=== PATIENT | male | born 1950 | race Caucasian/White ===

== ENCOUNTER 2017-06-10 06:44 | Day surgery (SDC) | payer MEDICARE, BC ==
[~2017-06-10 06:44] MED LIST: Dextrose 5%-0.45% NaCl 1,000 ML IV SCH; Midazolam 1 MG/ML 2 ML SDV ONE; Sodium Chloride 0.9% 10 ML Syringe FLUSH PRN; fentaNYL 100 MCG/2 ML SDV ONE
[2017-06-10] MEDS ORDERED: fentaNYL 100 MCG/2 ML SDV IV ONE ×3 (06:45→08:16)
[2017-06-10] MEDS ORDERED: Midazolam 1 MG/ML 2 ML SDV IV ONE ×7 (06:45→08:23)
--- NOTE | 2017-06-10 10:45 | OR ---
DATE: 06/10/2017 PROCEDURE: Total colonoscopy. INSTRUMENT USED: CF-H180 AL Olympus video colonoscope. PREMEDICATIONS: Fentanyl 100 mcg intravenous, Versed 4 mg intravenous. Nasal O2 cannula. The procedure was done under pulse oximetry, BP recording, and cardiac surgeon. INDICATION: The patient with rectal bleeding. Colonoscopic examination is done for detection of any polypoid lesions and removal, endoscopic hemostasis therapy if needed. DESCRIPTION OF PROCEDURE: Initial rectal exam was unremarkable. Rigid anoscopy showed small internal hemorrhoids without bleeding from them. The colonoscope was passed with ease. Scattered diverticula were noted in the distal colon along with deformity. The scope was passed with ease up to the ileocecal area. Photographs were taken of the normal-appearing cecum identified by appendiceal orifice and double-bulged ileocecal folds. No bleeding was noted from any of the visualized areas at the commencement of the examination. No stricture. No vascular ectasia. No large isolated ulcerations seen. No evidence of diffuse inflammatory bowel disease in the form of friability, contact bleeding, or ulcerations. No polyp or tumor mass identified. Probing the proximal sides of folds and flexures, using adequate distention and clearing of the stool material, withdrawal of the scope was made. Cecum to rectum time over 6 minutes. No bleeding was noted from any of the visualized areas at the completion of the examination. IMPRESSION: 1. Internal hemorrhoids. 2. Diverticulosis. The patient tolerated the procedure well. [facility] /[id number]
[2017-06-10 13:46] VITALS: BP 126/72
== END 2017-06-10 10:36 | disposition home or self-care (01) ==
LOC: DL.ENDO 06:44
PROVIDERS: ATTEND Internal Medicine Gastroenterology
DX: K57.30 Diverticulosis of large intestine without perforation or abscess without bleeding (principal); K64.8 Other hemorrhoids; F32.9 Major depressive disorder, single episode, unspecified; E78.5 Hyperlipidemia, unspecified; Z90.49 Acquired absence of other specified parts of digestive tract; Z87.891 Personal history of nicotine dependence
CPT/HCPCS: 45378; J2250; J3010; J7042

== ENCOUNTER 2018-09-02 16:52 | Emergency (ER) | payer MEDICARE, BC ==
[2018-09-02 17:05] VITALS: BP 165/91
--- NOTE | 2018-09-02 17:10 | EDM.PDOC ---
ED HPI GENERAL MEDICAL PROBLEM - General Chief Complaint: Neuro Symptoms/Deficits Stated Complaint: DIZZY, SWEATS Time Seen by Provider: 09/02/18 17:10 Source of Information: Reports: Patient, Family (), Old Records, RN, RN Notes Reviewed History Limitations: Reports: No Limitations - History of Present Illness INITIAL COMMENTS - FREE TEXT/NARRATIVE: Pt presents to ER from home by POV with c/o recurring episodes of near syncope that began four days ago (on 08/30/18). Pt describes lightheadedness and comes close to "passing out". The episodes are associated with diaphoresis and nausea. He vomited a small amount, but only one time. Since the onset the episodes have been increasing in frequency and intensity. He denies "room spin dizziness", headache, visual changes, difficulty swallowing, slurred speech, speech difficulties, motor weakness, or unilateral motor or sensory deficits, chest pain, palpitations, or shortness of breath. Onset: Sudden Duration: Getting Worse, Recurring Location: Reports: Generalized Quality: Reports: Other (Denies pain) Severity: Severe Improves with: Reports: None Worsens with: Reports: None Associated Symptoms: Reports: No Other Symptoms - Related Data Allergies Allergy/AdvReac Type Severity Reaction Status Date / Time No Known Allergies Allergy Verified 06/10/17 07:02 Home Meds: Home Meds Sertraline [Zoloft] 25 mg PO DAILY 03/30/16 [History] Zolpidem [Ambien] 5 mg PO BEDTIME PRN 03/30/16 [History] atorvaSTATin [Lipitor] 10 mg PO BEDTIME 03/30/16 [History] Calcium Carbonate/Vitamin D3 [Calcium 500 + Vit D 400] 1 tab PO ASDIRECTED 05/27 [History] Fluticasone Propionate [Flonase Allergy Relief] 1 squirt NASBOTH ASDIRECTED 09/08 [History] L.acidoph,Paracasei, B.lactis [Probiotic] 1 cap PO ASDIRECTED 05/27/17 [History] Ubidecarenone [Coenzyme Q10] 1 tab PO DAILY 05/27/17 [History] Aspirin [Halfprin] 1 tab PO DAILY 06/09/17 [History] Past Medical History HEENT History: Reports: Cataract Cardiovascular History: Reports: High Cholesterol Respiratory History: Reports: Bronchitis, Recurrent Gastrointestinal History: Reports: Diverticulosis, Other (See Below) Other Gastrointestinal History: HX OF ANAL FISSURE & FISTULA Genitourinary History: Reports: Prostate Disorder Musculoskeletal History: Reports: Arthritis Neurological History: Reports: None Psychiatric History: Reports: Depression, Other (See Below) Other Psychiatric History: S/P TOBACCO HABITUATION Endocrine/Metabolic History: Reports: None Hematologic History: Reports: None Immunologic History: Reports: None Oncologic (Cancer) History: Reports: None Dermatologic History: Reports: None - Infectious Disease History Infectious Disease History: Reports: Chicken Pox, Measles, Mumps - Past Surgical History HEENT Surgical History: Reports: None Cardiovascular Surgical History: Reports: None GI Surgical History: Reports: Cholecystectomy, Colonoscopy, EGD Male Surgical History: Reports: None Social & Family History - Family History Family Medical History: Noncontributory - Tobacco Use Smoking Status *Q: Never Smoker - Caffeine Use Caffeine Use: Reports: Coffee, Soda Caffeine Use Comment: 8oz coffee. 1 pop - Living Situation & Occupation Living situation: Reports: with Spouse ED ROS GENERAL - Review of Systems Review Of Systems: ROS reveals no pertinent complaints other than HPI. ED EXAM, NEURO - Physical Exam Exam: See Below Exam Limited By: No Limitations General Appearance: Alert, WD/WN, No Apparent Distress, Anxious Eye Exam: Bilateral Eye: EOMI, Nystagmus, PERRL Ears: Normal External Exam, Hearing Grossly Normal Nose: Normal Inspection, Normal Mucosa, No Blood Throat/Mouth: Normal Inspection, Normal Lips, Normal Teeth, Normal Gums, Normal Oropharynx, Normal Voice, No Airway Compromise Head Exam: Atraumatic, Normocephalic Neck: Normal Inspection, Supple, Non-Tender, Full Range of Motion. No: Carotid Bruit Respiratory/Chest: No Respiratory Distress, Lungs Clear, Normal Breath Sounds, No Accessory Muscle Use, Chest Non-Tender Cardiovascular: Normal Peripheral Pulses, Regular Rate, Rhythm, No Edema, No Gallop, No JVD, No Murmur, No Rub GI/Abdominal: Normal Bowel Sounds, Soft, Non-Tender, No Distention Neurological: Alert, Normal Mood/Affect, Normal Dorsiflexion, CN II-XII Intact, Normal Plantar Flexion, No Motor/Sensory Deficits, Oriented x 3, Other (NIH score: 0 per RN) Back Exam: Normal Inspection Extremities: Normal Inspection, Normal Range of Motion, Non-Tender, No Pedal Edema, Normal Capillary Refill Psychiatric: Normal Affect, Normal Mood, Anxious Skin Exam: Warm, Dry, Intact, Normal Color, No Rash EKG INTERPRETATION EKG Date: 09/02/18 Time: 17:07 Rhythm: Other (SR) Rate (Beats/Min): 63 [place]: Normal P-Wave: Present QRS: Normal ST-T: Normal QT: Normal Comparison: NA - No Prior EKG EKG Interpretation Comments: No acute ischemic changes. Course - Vital Signs Last Recorded V/S: Last Vital Signs Temp 36.3 C 09/02/18 17:02 Pulse 76 09/02/18 17:02 Resp 20 09/02/18 17:02 BP 165/91 H 09/02/18 17:02 Pulse Ox 100 09/02/18 17:02 Orthostatic Blood Pressure [ 145/94 Standing] Orthostatic Blood Pressure [ 149/101 Sitting] Orthostatic Blood Pressure [ 179/86 Supine] No orthostatic dizziness. - Orders/Labs/Meds Orders: Active Orders 24 hr Category Date Time Status EKG 12 Lead [EKG Documentation Completion] [RC] STAT Care 09/02/18 17:28 Active Peripheral IV Care [RC] . DIRECTED Care 09/02/18 17:30 Active Head wo Cont [CT] Stat Exams 09/02/18 17:28 Taken Sodium Chloride 0.9% [Saline Flush] Med 09/02/18 17:30 Active 10 ml FLUSH ASDIRECTED PRN Peripheral IV Insertion Adult [OM.PC] Stat Oth 09/02/18 17:30 Ordered Medication Orders Sodium Chloride (Saline Flush) 10 ml FLUSH ASDIRECTED PRN PRN Reason: Keep Vein Open Last Admin: 09/02/18 17:43 Dose: 10 ml Labs: Laboratory Tests 09/02/18 09/02/18 09/02/18 Range/Units 17:36 17:36 17:36 WBC 6.9 (5.0-10.0) 10^3/uL RBC 5.18 (4.6-6.2) 10^6/uL Hgb 15.9 (14.0-18.0) g/dL Hct 45.4 (40.0-54.0) % MCV 87.6 (80-100) fL MCH 30.7 (27.0-34.0) pg MCHC 35.0 (33.0-35.0) g/dL Plt Count 150 (150-450) 10^3/uL Neut % (Auto) 64.1 (42.2-75.2) % Lymph % (Auto) 25.4 (20.5-50.1) % [place] % (Auto) 9.4 H (2-8) % Eos % (Auto) 1.0 (1.0-3.0) % Baso % (Auto) 0.1 (0.0-1.0) % D-Dimer, Quantitative < 100 (0-400) ng/mL Sodium 138 (135-145) mmol/L Potassium 4.4 (3.6-5.0) mmol/L Chloride 102 (101-111) mmol/L Carbon Dioxide 25.0 (21.0-31.0) mmol/L Anion Gap 15.4 BUN 15 (7-18) mg/dL Creatinine 1.2 (0.6-1.3) mg/dL Est Cr Clr Drug Dosing 59.14 mL/min Estimated GFR (MDRD) 60 BUN/Creatinine Ratio 12.50 Glucose 106 H (74-105) mg/dL Calcium 9.5 (8.4-10.2) mg/dl Magnesium 2.0 (1.8-2.5) mg/dL Total Bilirubin 0.7 (0.2-1.0) mg/dL AST 38 (10-42) IU/L ALT 58 (10-60) IU/L Alkaline Phosphatase 57 (42-121) IU/L Troponin I < 0.02 (0.00-0.02) ng/ml Total Protein 7.8 (6.7-8.2) g/dl Albumin 4.7 (3.2-5.5) g/dl Globulin 3.1 Albumin/Globulin Ratio 1.52 Meds: Medications Generic Name Dose Route Start Last Admin Trade Name Freq PRN Reason Stop Dose Admin Sodium Chloride 10 ml 09/02/18 17:30 09/02/18 17:43 Saline Flush FLUSH 10 ml ASDIRECTED PRN Administration Keep Vein Open - Radiology Interpretation Free Text/Narrative:: [facility] Final Radiology Report Call: [phone] assistance Online chat: [email or web address] Name: KALEY MIXON Age: 68Years M Date: 09/02/2018 SSN: -- : [id number] Study: CT HEAD WO Requesting Physician: BERONICA HIGHTOWER Images: 150 Addl Studies: Provided Clinical History: Contrast: Without Contrast Medium: Contrast Amount: Contrast Method: Page 1 of 2 EXAM: CT Head Without Contrast EXAM DATE/TIME: 09/02/2018 5:45 PM CLINICAL HISTORY: 68 years old, male; Signs and symptoms; Other: Recurrent near syncope TECHNIQUE: Imaging protocol: Axial computed tomography images of the head/brain without contrast. Coronal and sagittal reformatted images were created and reviewed. Radiation optimization: All CT scans at this facility use at least one of these dose optimization techniques: automated exposure control; mA and/or kV adjustment per patient size (includes targeted exams where dose is matched to clinical indication); or iterative reconstruction. COMPARISON: No relevant prior studies available. FINDINGS: Brain: Mild cortical atrophy is present. There is no mass effect or midline shift. Bilateral subcentimeter cerebellar lucencies reaching 8mm in size are consistent with infarcts. There is no sign of acute intracranial hemorrhage or cerebral edema. Ventricles: No hydrocephalus. Bones/joints: Normal. Skull base and overlying calvarium are intact. No lytic or osteosclerotic lesions. Sinuses: Visualized sinuses are unremarkable. No acute sinusitis. Mastoid air cells: Visualized mastoid air cells are unremarkable. No mastoid effusion. Soft tissues: Unremarkable. IMPRESSION: KALEY MIXON | Final Radiology Report CONFIDENTIALITY STATEMENT This report is intended only for use by the referring physician, and only in accordance with law. If you received this in error, call [phone]. Page 2 of 2 1. No acute intracranial process. 2. Mild cortical atrophy is present. 3. Bilateral subcentimeter cerebellar lucencies reaching 8mm in size are consistent with infarcts. These are probably not acute. Thank you for allowing us to participate in the care of your patient. Dictated and Authenticated by: Navid Alex MD 09/02/2018 6:00 PM Central Time ([place] & [place]) - Re-Assessments/Exams Free Text/Narrative Re-Assessment/Exam: 09/02/18 18:[address] Bee via [employer]. He does not think the pt's presenting Sx's are related to the 2 areas of CVA on the CT Head. Pt will be transferred to [facility] to with Dr. Whitaker accepting the pt for evaluation of recurrent syncope, and previously unknown cerebellar CVAs. Departure - Departure Time of Disposition: 18:35 Disposition: DC/Tfer to [facility] 02 Condition: Serious Clinical Impression: Near syncope, Recurrent syncope, Cerebrovascular accident (CVA) involving cerebellum - Discharge Information *PRESCRIPTION DRUG MONITORING PROGRAM REVIEWED*: No *COPY OF PRESCRIPTION DRUG MONITORING REPORT IN PATIENT MARLYS: No Forms: ED Department Discharge, Interfacility Transfer EMTALA - My Orders Last 24 Hours: My Active Orders 09/02/18 17:28 EKG 12 Lead [EKG Documentation Completion] [RC] STAT Head wo Cont [CT] Stat 09/02/18 17:30 Peripheral IV Care [RC] . DIRECTED Sodium Chloride 0.9% [Saline Flush] 10 ml FLUSH ASDIRECTED PRN Peripheral IV Insertion Adult [OM.PC] Stat - Assessment/Plan Last 24 Hours: My Active Orders 09/02/18 17:28 EKG 12 Lead [EKG Documentation Completion] [RC] STAT Head wo Cont [CT] Stat 09/02/18 17:30 Peripheral IV Care [RC] . DIRECTED Sodium Chloride 0.9% [Saline Flush] 10 ml FLUSH ASDIRECTED PRN Peripheral IV Insertion Adult [OM.PC] Stat
[2018-09-02] MEDS ORDERED: Sodium Chloride 0.9% 10 ML Syringe FLUSH PRN (17:30)
[2018-09-02 18:03] LABS: ANION GAP 15.4; CHLORIDE,CL 102 mmol/L (101-111); SODIUM,NA 138 mmol/L (135-145)
[2018-09-02] MEDS ORDERED: Ondansetron 4 MG/2 ML SDV IV ONE (18:52)
== END 2018-09-02 19:05 ==
LOC: DL.ED 16:52
DX: I63.9 Cerebral infarction, unspecified (principal); E78.00 Pure hypercholesterolemia, unspecified; F32.9 Major depressive disorder, single episode, unspecified; Z79.82 Long term (current) use of aspirin; Z79.899 Other long term (current) drug therapy
CPT/HCPCS: 36415; 70450; 80053; 83735; 84484; 85025; 85379; 93005; 96374; 99285; J2405

== ENCOUNTER 2018-09-09 10:07 | Inpatient (IN) | payer MEDICARE, BC ==
[2018-09-09] MEDS ORDERED: Ondansetron 4 MG Tab.DIS PO PRN (12:52)
[2018-09-09] MEDS ORDERED: Acetaminophen 325 MG Tab PO PRN (12:52)
[2018-09-09] MEDS ORDERED: Non-Formulary Medication 1 Each (Ondansetron 4 MG) PO PRN (12:54)
--- NOTE | 2018-09-09 18:05 | HP ---
CHIEF COMPLAINT: Recent diagnosis of cerebrovascular accident resulting in gait disturbances requiring ongoing physical therapy and occupational therapy while in the Swing Bed. HISTORY OF PRESENT ILLNESS: Mr. Can Marvin is a 68-year-old male with medical history significant for hypertension and hyperlipidemia, was initially admitted to [facility] on 09/02/2018 with complaints of dizziness and had further workup done, which showed evidence of acute cerebrovascular accident. The patient had a CT scan of the head, which revealed bilateral opacities consistent with infarct. The patient had MRI scan also done, which showed evidence of moderate-sized acute and subacute cerebral infarcts in both hemispheres consistent with embolic phenomenon. CTA revealed an occluded right PICA. Echocardiogram was within normal limits; however, the patient was noted to have an atrial septal defect on initial imaging. The patient was evaluated by Speech and Swallow, Physical Therapy, Occupational Therapy, and Neurology at the outlying facility. Speech and Swallow was cleared and the patient is recommended to be on general diet. The patient continued to have dizziness and subtle right-sided weakness with unsteady gait, requiring ongoing physical therapy and occupational therapy, requiring this transfer to Swing Bed. The patient also has the Zio patch in place. He was closely monitored on the telemetry unit over there, which did not show any acute lesion. The patient was noted to have uncontrolled hypertension requiring dose adjustment of his medications. At this time, the patient denies any complaints of chest pain. No shortness of breath. No abdominal pain. No nausea. No vomiting. No diarrhea. No headaches. No changes in the vision. The patient denied any history of chest pains on exertion. No history of dyspnea on exertion. No history of orthopnea or paroxysmal nocturnal dyspnea. The patient denied any history of hematemesis, hematochezia, or melenic stools. Normal bowel and bladder habits otherwise. REVIEW OF SYSTEMS: A complete review of systems including skin; ear, nose, and throat; cardiovascular system; respiratory system; gastrointestinal system; genitourinary system; hematology; oncology; neurology; allergy; immunology; constitutional were all evaluated and were negative except for the above-said notes. PAST MEDICAL HISTORY: Significant for hypertension, hyperlipidemia, low testosterone level, and history of depression. PAST SURGICAL HISTORY: Significant for cholecystectomy. FAMILY HISTORY: Significant for dementia and rheumatoid arthritis in his mother, heart disease in his father, alcohol abuse in his sister and brothers, schizophrenia in his brother. SOCIAL HISTORY: The patient denied any history of smoking tobacco. History of alcohol intake. Claims that he drinks a few shots of miranda every day. ALLERGIES: No known drug allergies. HOME MEDICATIONS: Include omeprazole 20 mg daily, Ambien 5 mg at bedtime as needed for sleep, Zofran 4 mg every 8 hours as needed for nausea, lisinopril 5 mg daily, Norvasc 10 mg daily, calcium carbonate with vitamin D 1 tablet daily, Lipitor 40 mg at bedtime, coenzyme Q10 daily, hydrochlorothiazide 25 mg daily, aspirin 81 mg daily, Plavix 75 mg daily, and Zoloft 25 mg daily. PHYSICAL EXAMINATION: Vital Signs: Temperature of 98.7, pulse of 98, blood pressure of 132/82, respiratory rate of 20, saturating at 99% on room air. General Appearance: The patient is well oriented to time, place, and person. Follows commands spontaneously. Cardiovascular System: S1 and S2 heard with normal intensity. No gallops. Respiratory System: Clear to auscultation bilaterally. No wheeze. No crepitations. Abdomen: Soft. Bowel sounds positive. Nontender. No rigidity. Extremities: No edema in bilateral lower extremities. Neurology: No gross focal neurological deficits. LABORATORY DATA: Labs obtained from [facility] show sodium 135, potassium 3.2, chloride 100, bicarb 27.3, creatinine 1.1, blood glucose 120. WBC 10.3, hemoglobin 15.9, and hematocrit 44.5. ASSESSMENT: 1. Acute cerebrovascular accident resulting in gait disturbance. 2. Hypertension, uncontrolled. 3. Hyperlipidemia. 4. History of depression. PLAN: 1. Acute cerebrovascular accident. The patient recently diagnosed with acute cerebrovascular accident with bilateral cerebral hemispheric infarcts, mostly embolic in phenomenon. The patient has a Zio patch in place. We will continue with current treatment plan. Continue with the aspirin and Plavix. We will have him on DVT prophylaxis with heparin subcutaneously q.12 hourly, and we will continue with his physical therapy and occupational therapy while in the Swing Bed. 2. Hypertension, uncontrolled. He was recently added with lisinopril. Continue with current antihypertensive medication. We will further dose adjust the medication to optimize his blood pressure while in the hospital. 3. Dyslipidemia. The patient is currently on statin. Continue the same. 4. Code status. The patient wants to be full code. Reviewed the labs and medications. Reviewed the charts obtained from [facility]. [facility] /[id number]
[2018-09-09] MEDS ORDERED: Aluminum Hydroxide/Magnesium Hydroxide/Simethicone Susp 30 ML Cup PO PRN (21:04)
[2018-09-09] MEDS: atorvaSTATin 20 MG Tab PO SCH (21:37)
[2018-09-10] MEDS: Omeprazole 20 MG Cap.CR PO SCH (06:47)
[2018-09-10] MEDS: Enoxaparin 40 MG/0.4 ML Syringe SUBCUT SCH (09:12)
[2018-09-10] MEDS: Hydrochlorothiazide 25 MG Tab PO SCH (09:13)
[2018-09-10] MEDS: amLODIPine 5 MG Tab PO SCH (09:13)
[2018-09-10] MEDS: Sertraline 50 MG Tab PO SCH (09:14)
[2018-09-10] MEDS: Aspirin 81 MG Tab.EC PO SCH (09:14)
[2018-09-10] MEDS: Lisinopril 5 MG Tab PO SCH (09:15)
[2018-09-10] MEDS: Calcium Carbonate/Vitamin D3 1250 MG-200 Unit Tab PO SCH (09:15)
[2018-09-10] MEDS: Clopidogrel 75 MG Tab PO SCH (09:15)
[2018-09-10] MEDS: Potassium Chloride 10 MEQ Tab.ER PO SCH ×2 (12:31→17:45)
[2018-09-10] MEDS: atorvaSTATin 20 MG Tab PO SCH (21:53)
[2018-09-11] MEDS: Omeprazole 20 MG Cap.CR PO SCH (05:30)
[2018-09-11] MEDS: Clopidogrel 75 MG Tab PO SCH (09:00)
[2018-09-11] MEDS: Potassium Chloride 10 MEQ Tab.ER PO SCH ×2 (09:00→17:20)
[2018-09-11] MEDS: Enoxaparin 40 MG/0.4 ML Syringe SUBCUT SCH (09:00)
[2018-09-11] MEDS: Aspirin 81 MG Tab.EC PO SCH (09:01)
[2018-09-11] MEDS: amLODIPine 5 MG Tab PO SCH (09:01)
[2018-09-11] MEDS: Lisinopril 5 MG Tab PO SCH (09:02)
[2018-09-11] MEDS: Calcium Carbonate/Vitamin D3 1250 MG-200 Unit Tab PO SCH (09:02)
[2018-09-11] MEDS: Hydrochlorothiazide 25 MG Tab PO SCH (09:03)
[2018-09-11] MEDS: Sertraline 50 MG Tab PO SCH (09:03)
[2018-09-11] MEDS: atorvaSTATin 20 MG Tab PO SCH (21:25)
[2018-09-12] MEDS: Omeprazole 20 MG Cap.CR PO SCH (06:24)
[2018-09-12 07:13] LABS: ANION GAP 13.9; CHLORIDE,CL 101 mmol/L (101-111); SODIUM,NA 133 mmol/L (135-145)
[2018-09-12] MEDS: Clopidogrel 75 MG Tab PO SCH (08:10)
[2018-09-12] MEDS: Potassium Chloride 10 MEQ Tab.ER PO SCH (08:10)
[2018-09-12] MEDS: Calcium Carbonate/Vitamin D3 1250 MG-200 Unit Tab PO SCH (08:10)
[2018-09-12] MEDS: Aspirin 81 MG Tab.EC PO SCH (08:10)
[2018-09-12] MEDS: Hydrochlorothiazide 25 MG Tab PO SCH (08:11)
[2018-09-12] MEDS: Sertraline 50 MG Tab PO SCH (08:11)
[2018-09-12] MEDS: amLODIPine 5 MG Tab PO SCH (08:11)
[2018-09-12] MEDS: Lisinopril 5 MG Tab PO SCH (08:12)
[2018-09-12] MEDS: Enoxaparin 40 MG/0.4 ML Syringe SUBCUT SCH (08:12)
[2018-09-12] MEDS: atorvaSTATin 20 MG Tab PO SCH (20:41)
[2018-09-12] MEDS: Zolpidem 5 MG Tab PO PRN (22:11)
[2018-09-13] MEDS: Omeprazole 20 MG Cap.CR PO SCH (06:21)
[2018-09-13] MEDS: Calcium Carbonate/Vitamin D3 1250 MG-200 Unit Tab PO SCH (08:45)
[2018-09-13] MEDS: Lisinopril 5 MG Tab PO SCH (08:45)
[2018-09-13] MEDS: Sertraline 50 MG Tab PO SCH (08:45)
[2018-09-13] MEDS: Aspirin 81 MG Tab.EC PO SCH (08:45)
[2018-09-13] MEDS: amLODIPine 5 MG Tab PO SCH (08:45)
[2018-09-13] MEDS: Clopidogrel 75 MG Tab PO SCH (08:45)
[2018-09-13] MEDS: Hydrochlorothiazide 25 MG Tab PO SCH (08:45)
[2018-09-13] MEDS: Potassium Chloride 10 MEQ Tab.ER PO SCH (08:46)
[2018-09-13] MEDS: Enoxaparin 40 MG/0.4 ML Syringe SUBCUT SCH (08:46)
[2018-09-13] MEDS: atorvaSTATin 20 MG Tab PO SCH (20:46)
[2018-09-14] MEDS: Omeprazole 20 MG Cap.CR PO SCH (05:53)
[2018-09-14] MEDS: Aspirin 81 MG Tab.EC PO SCH (09:47)
[2018-09-14] MEDS: Calcium Carbonate/Vitamin D3 1250 MG-200 Unit Tab PO SCH (09:47)
[2018-09-14] MEDS: Sertraline 50 MG Tab PO SCH (09:47)
[2018-09-14] MEDS: Potassium Chloride 10 MEQ Tab.ER PO SCH (09:47)
[2018-09-14] MEDS: Lisinopril 5 MG Tab PO SCH (09:47)
[2018-09-14] MEDS: Enoxaparin 40 MG/0.4 ML Syringe SUBCUT SCH (09:48)
[2018-09-14] MEDS: Hydrochlorothiazide 25 MG Tab PO SCH (09:48)
[2018-09-14] MEDS: Clopidogrel 75 MG Tab PO SCH (10:26)
[2018-09-14] MEDS: amLODIPine 5 MG Tab PO SCH (10:26)
[2018-09-14] MEDS: Zolpidem 5 MG Tab PO PRN (21:02)
[2018-09-14] MEDS: atorvaSTATin 20 MG Tab PO SCH (21:02)
[2018-09-15] MEDS: Omeprazole 20 MG Cap.CR PO SCH (06:00)
[2018-09-15] MEDS: Hydrochlorothiazide 25 MG Tab PO SCH (09:08)
[2018-09-15] MEDS: Lisinopril 5 MG Tab PO SCH (09:08)
[2018-09-15] MEDS: Aspirin 81 MG Tab.EC PO SCH (09:08)
[2018-09-15] MEDS: Sertraline 50 MG Tab PO SCH (09:09)
[2018-09-15] MEDS: Potassium Chloride 10 MEQ Tab.ER PO SCH (09:10)
[2018-09-15] MEDS: amLODIPine 5 MG Tab PO SCH (09:10)
[2018-09-15] MEDS: Clopidogrel 75 MG Tab PO SCH (09:10)
[2018-09-15] MEDS: Enoxaparin 40 MG/0.4 ML Syringe SUBCUT SCH (09:11)
[2018-09-15] MEDS: Calcium Carbonate/Vitamin D3 1250 MG-200 Unit Tab PO SCH (09:11)
[2018-09-15] MEDS: atorvaSTATin 20 MG Tab PO SCH (20:57)
[2018-09-16] MEDS: Zolpidem 5 MG Tab PO PRN (00:50)
[2018-09-16] MEDS: Omeprazole 20 MG Cap.CR PO SCH (05:56)
[2018-09-16 07:37] VITALS: BP 129/67
[2018-09-16] MEDS: Potassium Chloride 10 MEQ Tab.ER PO SCH (09:03)
[2018-09-16] MEDS: amLODIPine 5 MG Tab PO SCH (09:03)
[2018-09-16] MEDS: Clopidogrel 75 MG Tab PO SCH (09:03)
[2018-09-16] MEDS: Aspirin 81 MG Tab.EC PO SCH (09:03)
[2018-09-16] MEDS: Hydrochlorothiazide 25 MG Tab PO SCH (09:03)
[2018-09-16] MEDS: Enoxaparin 40 MG/0.4 ML Syringe SUBCUT SCH (09:03)
[2018-09-16] MEDS: Lisinopril 5 MG Tab PO SCH (09:03)
[2018-09-16] MEDS: Sertraline 50 MG Tab PO SCH (09:03)
[2018-09-16] MEDS: Calcium Carbonate/Vitamin D3 1250 MG-200 Unit Tab PO SCH (09:03)
--- NOTE | 2018-09-17 06:49 | DISCH ---
HISTORY: Can is a 68-year-old man who initially presented to the [facility] ER on 09/02/2018 with dizziness and overall feeling very poorly. He had a CT scan, which showed acute stroke. He was transferred initially to [facility] where full workup showed acute and subacute infarcts. CT angiography also revealed an occluded right PICA. Echocardiogram of note did show an atrial septal defect. He was admitted to swing bed at our facility for further occupational and physical therapy as well as speech therapy. HOSPITAL COURSE: Upon his admission, he was admitted with Plavix as well as aspirin. He was also admitted with atenolol, hydrochlorothiazide, and ramipril to allow for very tight blood pressure control. He was evaluated by Speech Therapy where he passed a swallow study successfully. Over the subsequent hospital days, he has done quite well with his occupational and physical therapy, and has tolerated his antihypertensive treatment very well. He is discharged home today with outpatient followup with Neurology, Physical and Occupational Therapy as well as his primary care provider. DISCHARGE EXAMINATION: General: Can is a pleasant 68-year-old man in no acute distress. He is moving all of his extremities well. Vital Signs: Blood pressure today is 129/67, pulse is 67, respiratory rate 18, O2 saturations are 100% on room air. Heart: Regular rate and rhythm. No murmurs, rubs, or gallops noted. Lungs: Clear to auscultation throughout. DISCHARGE MEDICATIONS: 1. Aspirin 81 mg daily. 2. Amlodipine 10 mg daily. 3. Atorvastatin 40 mg at bedtime. 4. Plavix 75 mg daily. 5. Hydrochlorothiazide 25 mg daily. 6. Lisinopril 5 mg daily. 7. Sertraline 25 mg daily. DISCHARGE DIAGNOSES: 1. Bilateral cerebellar infarcts secondary to posterior inferior cerebellar artery. 2. Global balance and coordination deficit secondary to #1. 3. Essential hypertension, now well controlled with antihypertensive medication. PLAN: 1. We do have him scheduled for followup with his primary care provider next week. 2. He does have Neurology evaluation and followup already scheduled. [facility] /[id number]
== END 2018-09-16 15:06 | disposition home or self-care (01) | DRG 66 ==
LOC: DL.MS 10:07 → UNDOADMIN 10:07 → DL.MS 12:52
PROVIDERS: ADMIT Internal Medicine; ATTEND Internal Medicine
DX: I63.541 Cerebral infarction due to unspecified occlusion or stenosis of right cerebellar artery (principal); I10 Essential (primary) hypertension; E78.5 Hyperlipidemia, unspecified; F32.9 Major depressive disorder, single episode, unspecified; Z79.82 Long term (current) use of aspirin; Z79.02 Long term (current) use of antithrombotics/antiplatelets
CPT/HCPCS: 36415; 80048; 83735; 85027; 97110-GO; 97110-GP; 97116-GP; 97162-GP; 97165-GO; 97530-GO; A9270-GY; J1650

== ENCOUNTER 2023-05-04 15:37 | Emergency (ER) | payer MEDICARE, BC ==
[2023-05-04] MEDS ORDERED: Sodium Chloride 0.9% 10 ML Syringe FLUSH PRN (15:54)
[2023-05-04 16:01] LABS: BASOPHILS PERCENT AUTO 0.1 % (0.0-1.0); EOSINOPHILS PERCENT AUTO 3.2 % (1.0-3.0); HEMATOCRIT 43.9 % (40.0-54.0); HEMOGLOBIN 14.8 g/dL (14.0-18.0); LYMPHOCYTES PERCENT AUTO 27.8 % (20.5-50.1); MEAN CORPUSCULAR HEMOGLOBIN 29.4 pg (27.0-34.0); MEAN CORPUSCULAR HGB CONC 33.7 g/dL (33.0-35.0); MEAN CORPUSCULAR VOLUME 87.3 fL (80-100); MONOCYTES PERCENT AUTO 8.9 % (2-8); PLATELET COUNT,PLT 158 10^3/uL (150-450); RED BLOOD CELL COUNT 5.03 10^6/uL (4.6-6.2); WHITE BLOOD CELL COUNT,WBC 8.1 10^3/uL (5.0-10.0)
[2023-05-04 16:17] LABS: ALBUMIN 3.9 g/dL (3.4-5.0); BILIRUBIN TOTAL 0.4 mg/dL (0.2-1.0); BUN/CREATININE RATIO 14.6 (No establ ref range); CALCIUM 9.2 mg/dL (8.5-10.1); CREATININE 1.03 mg/dL (0.70-1.30); EST CRCL DRUG DOSING (CG) 64.97 mL/min
[2023-05-04 16:47] LABS: CORONAVIRUS COVID-19 NAA NEGATIVE (NEGATIVE); INFLUENZA A NAA POSITIVE (NEGATIVE); INFLUENZA B NAA NEGATIVE (NEGATIVE); RESPIRATORY SYNCYTIAL VIR NAA NEGATIVE (NEGATIVE)
[2023-05-04 16:58] VITALS: BP 110/84; PULSE 64
== END 2023-05-04 17:10 | disposition home or self-care (01) ==
LOC: DL.ED 15:37
DX: J01.90 Acute sinusitis, unspecified (principal); B97.89 Other viral agents as the cause of diseases classified elsewhere; J10.1 Influenza due to other identified influenza virus with other respiratory manifestations; I10 Essential (primary) hypertension; H83.03 Labyrinthitis, bilateral; E78.00 Pure hypercholesterolemia, unspecified; Z86.73 Personal history of transient ischemic attack (TIA), and cerebral infarction without residual deficits; Z90.49 Acquired absence of other specified parts of digestive tract; Z79.82 Long term (current) use of aspirin; Z79.899 Other long term (current) drug therapy; Z20.822 Contact with and (suspected) exposure to COVID-19
CPT/HCPCS: 0241U; 36415; 70450; 80053; 82947; 85025; 93005; 93010; 99284; J3490

== ENCOUNTER 2024-05-25 13:17 | Emergency (ER) | payer MEDICARE, BC ==
[2024-05-25 13:38] VITALS: BP 151/77; PULSE 94
[2024-05-25 13:59] LABS: BASOPHILS PERCENT AUTO 0.2 % (0.0-1.0); EOSINOPHILS PERCENT AUTO 1.1 % (1.0-3.0); HEMATOCRIT 47.1 % (40.0-54.0); HEMOGLOBIN 16.1 g/dL (14.0-18.0); LYMPHOCYTES PERCENT AUTO 20.5 % (20.5-50.1); MEAN CORPUSCULAR HEMOGLOBIN 29.7 pg (27.0-34.0); MEAN CORPUSCULAR HGB CONC 34.2 g/dL (33.0-35.0); MEAN CORPUSCULAR VOLUME 86.9 fL (80-100); MONOCYTES PERCENT AUTO 7.5 % (2-8); NEUTROPHILS PERCENT AUTO 70.7 % (42.2-75.2); PLATELET COUNT,PLT 183 10^3/uL (150-450); RED BLOOD CELL COUNT 5.42 10^6/uL (4.6-6.2); WHITE BLOOD CELL COUNT,WBC 9.2 10^3/uL (5.0-10.0)
[2024-05-25 14:23] LABS: C-REACTIVE PROTEIN 1.22 ng/dL (<=0.50); URIC ACID 7.9 mg/dL (3.5-7.2)
[2024-05-25] MEDS: Ibuprofen 800 MG Tab PO ONE (14:25)
[2024-05-25 14:26] LABS: LACTIC ACID 2.1 mmol/L (0.4-2.0)
[2024-05-25] MEDS: Colchicine 0.6 MG Tab PO ONE (14:36)
== END 2024-05-25 15:10 | disposition home or self-care (01) ==
LOC: DL.ED 13:17
DX: M10.9 Gout, unspecified (principal); I10 Essential (primary) hypertension; E78.00 Pure hypercholesterolemia, unspecified; Z79.82 Long term (current) use of aspirin; Z79.899 Other long term (current) drug therapy; Z90.49 Acquired absence of other specified parts of digestive tract
CPT/HCPCS: 36415; 73562; 83605; 84550; 85025; 85651; 86140; 99283; 99284; A9270

== ENCOUNTER 2024-09-02 13:41 | Emergency (ER) | payer MEDICARE, BC ==
[2024-09-02] MEDS ORDERED: Sodium Chloride 0.9% 10 ML Syringe FLUSH PRN ×2 (14:01)
[2024-09-02] MEDS: Meclizine 12.5 MG Tab PO ONE (14:31)
[2024-09-02 14:51] LABS: BASOPHILS PERCENT AUTO 0.1 % (0.0-1.0); EOSINOPHILS PERCENT AUTO 1.3 % (1.0-3.0); HEMATOCRIT 45.7 % (40.0-54.0); HEMOGLOBIN 15.8 g/dL (14.0-18.0); LYMPHOCYTES PERCENT AUTO 26.1 % (20.5-50.1); MEAN CORPUSCULAR HEMOGLOBIN 29.7 pg (27.0-34.0); MEAN CORPUSCULAR HGB CONC 34.6 g/dL (33.0-35.0); MEAN CORPUSCULAR VOLUME 85.9 fL (80-100); MONOCYTES PERCENT AUTO 7.6 % (2-8); NEUTROPHILS PERCENT AUTO 64.9 % (42.2-75.2); PLATELET COUNT,PLT 175 10^3/uL (150-450); RED BLOOD CELL COUNT 5.32 10^6/uL (4.6-6.2); WHITE BLOOD CELL COUNT,WBC 8.6 10^3/uL (5.0-10.0)
[2024-09-02 15:10] LABS: INR 0.9 (0.9-1.2); PROTHROMBIN TIME 9.9 SEC (9.0-12.0)
[2024-09-02 15:13] LABS: A/G RATIO 1.1; ALBUMIN 4.2 g/dL (3.4-5.0); BILIRUBIN TOTAL 0.7 mg/dL (0.2-1.0); BUN/CREATININE RATIO 15.6 (No establ ref range); CALCIUM 10.1 mg/dL (8.5-10.1); CREATININE 1.22 mg/dL (0.70-1.30); EST CRCL DRUG DOSING (CG) 53.19 mL/min; PROTEIN TOTAL,TP 7.9 g/dL (6.4-8.2)
[2024-09-02 16:13] VITALS: BP 130/47; PULSE 57
[2024-09-02] MEDS: Meclizine 12.5 MG Tab ONE (16:29)
== END 2024-09-02 16:30 | disposition home or self-care (01) ==
LOC: DL.ED 13:41
DX: R42 Dizziness and giddiness (principal); Z79.82 Long term (current) use of aspirin; Z79.899 Other long term (current) drug therapy; E78.00 Pure hypercholesterolemia, unspecified; Z90.49 Acquired absence of other specified parts of digestive tract
CPT/HCPCS: 36415; 70450; 71045; 80053; 82947; 84484; 85025; 85610; 93005; 99284; A9270; 93010